=== PATIENT | male | born 1960 | race Caucasian/White ===

== ENCOUNTER 2024-11-07 04:30 | Emergency (ER) | payer BC, SELFPAY ==
[2024-11-07 04:32] VITALS: BP 154/89; PULSE 79; RESP 16; TEMP 35.8; O2SAT 97; BMI 27.8
--- OUTSIDE RECORDS SUMMARY | 2024-11-07 04:34 | XMS_ITS | Clinical Summary ---
Author Organization [facility] Address [place], [place] [address] Care Team Providers Care Audiologist Name Role Phone Abdoul Todd MD Primary Care Provider [phone]- [phone] Allergies Active Allergy Reactions Criticality Noted Date Comments Homeopathic Products 07/14/2007 Mesalamine Rash High 11/06/2024 Medications triamcinolone 0.025 % ointmentIndicati ons:Chronic eczema Apply topically to affected area(s) two times daily. Apply twice daily for up to 2 weeks then take a week off and repeat as needed. 80 g 3 4 Active clobetasol (TEMOVATE) 0.05 % ointmentIndicati ons:Chronic eczema Apply topically to affected area(s) two times daily. Use for up to 2 weeks and take a week off and repeat as needed. 60 g 1 5 Active mometasone-formo terol (DULERA) 100-5 mcg/actuation inhalerIndicatio ns:Mild intermittent asthma without complication 1-2 puffs every 8 hours as needed for asthma symptoms. Max 12 puffs per day. 1 Each 5 5 Active mesalamine (LIALDA) 1.2 gram delayed-release tabletIndication s:Ulcerative colitis without complications, unspecified location (HC) Take 4 Tablets (4.8 g) by mouth once daily with a meal. 360 Tablet 3 4 11/06/19 25 Discontin ued(*Cory rgic/Adve rse Rxn/Side Effects) mometasone-formo terol (DULERA) 100-5 mcg/actuation inhalerIndicatio ns:Mild intermittent asthma without complication 1-2 puffs every 4 hours as needed for asthma symptoms. Max 12 puffs per day. 1 Each 4 10/10/19 25 Discontin ued(Reord er (E-cancel not sent)) Active Problems Problem Noted Date Diagnosed Date Chronic eczema 10/10/2024 Ulcerative colitis without complications 015 Rhinitis medicamentosa 10/28/2011 Unspecified ulcerative colitis 08/07/2010 Overview (02/02/2024): Colonoscopy 07/2010 mild sigmoid colitis repeat in 3 years Colonoscopy 03/2014 proctitis repeat in 2 years Colonoscopy 05/2015 normal repeat in 2 years Colonoscopy 10/2020 ulcerative proctitis, quiescent colitis involving the left colon, repeat in 3 years Colonoscopy 01/2024 normal biopsies, repeat colonoscopy in 3 years Encounters Date Type Department Care Team Description 11/06/2024 Telephone [facility] [address] [place] [address] Fernando Reza MD Questions 11/06/2024 Nurse Triage [facility] [address] [place] [address] Abdoul Todd MD Derm Problem 10/16/2024 3:15 PM CASE MAKER Orders Only [facility] [address] [place] [address] Lab, [place] [facility] 10/16/2024 Travel 10/10/2024 3:10 PM CASE MAKER Office Visit [facility] [address] [place] [address] Abdoul Todd MD Physical (63 years); Immunization/Injecti on 10/09/2024 Travel 09/15/2024 Telephone [facility] [address] [place] [address] Jovana Taylor MD Results (Pulmonary Function test/) 09/12/2024 1:44 PM CASE MAKER - 09/12/2024 11:59 PM CASE MAKER Hospital Encounter [facility] [address] [place] [address] Jovana Taylor MD Chronic cough 09/12/2024 Travel 09/07/2024 11:15 AM CASE MAKER Office Visit [facility] [address] [facility] [place] [address] Jovana Taylor MD Cough (for about a year, SOB, no fever, Fatigue ) 09/07/2024 Travel 09/07/2024 Nurse Triage [facility] [address] [place] [address] Abdoul Todd MD Cough from Last 3 Months Immunizations Name Administration Dates Next Due AMB Influenza, IIV3 (Age >=3 years)(Flu Clinic Only) 07/23/2008 COVID-19 vaccine (AdInnovation 30mcg/0.3mL) PF, MDV 11/05/2020,10/15/2020 INFLUENZA, IIV3 PF (AGE >= 6 MO) 10/10/2024 Influenza A (H1N1), Inactiva jon (Age >=3 Years) 07/25/2009 Influenza, IIV3 (Age >=3 years) 06/28/2013,08/01,07/15/2005 Influenza, IIV4 09/08/2021 Influenza, IIV4 (=>6mos) MDV 07/04/2019 Tdap 10/10/2024,10/28/2011 Zoster (Shingrix-RZV, recombinant) 10/10/2024, Family History Medical History Relation Name Comments Ulcerative colitis Brother s/p colec jess Dementia Father early dementia w short term memory; lives at home Valvular heart disease Mother she h ad a procedure for this at 87 Anesthesia Problem Other none Ulcerative colitis Sister 1 Charlette Cancer-ovarian Sister 2 Marguerite Ulcerative colitis Sister 2 Marguerite Relation Name Status Comments Brother Alive Father Alive Mother Alive Other Sister 1 Charlette Alive Sister 2 Marguerite Social History Tobacco Use Types Packs/Day Years Used Date Smoking Tobacco: Never Smokeless Tobacco: Never Tobacco Cessation:Counseling Given: Yes Alcohol Use Standard Drinks/Week Comments Yes 0 (1 standard drink = 0.6 oz pur e alcohol) less than once a week PHQ-2 Answer Date Recorded PHQ-2 TOTAL SCORE 0 10/10/2024 Social Connections Answer Date Recorded Do you often feel lonely or isolated from those around you? 0 10/09/2024 Alcohol Use Answer Date Recorded How often do you have a drink containing alcohol ? 2 10/10/2024 How many drinks containing a lcohol do you have on a typical day when you are drinking? 0 10/10/2024 How often do you have five or more drinks on one occasion? 0 10/10/2024 Financial Resource Strain Answer Date R ecorded Difficulty of Paying Living Expenses 3 10/09/2024 Difficulty of Paying Living Expenses Not on file 10/09/2024 Food Insecurity Answer Date Recorded Do you worry your food will run out before you are able to buy more? 1 10/09/2024 Transportation Needs Answer Date Record ed Does lack of transportation keep you from medica l appointments? 1 10/09/2024 Does lack of transportation keep you from work, meetings or getting things that you need? 1 10/09/2024 Housing Stability Answer Date Recorded What is your housing situation today? 1 10/09/2024 Utilities Answer Date Recorded Do you have trouble paying f or utilities (for example, heat, electricity, water, phone)? 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 Not on file Not on file Obstetrics History Last Filed Vital Signs Vital Sign Reading Time Taken Comments Blood Pressure 118/83 10/10/2024 3:19 PM CASE MAKER Pulse 85 10/10/2024 3:19 PM CASE MAKER Temperature 36.5 C (97.7 F) 10/10/2024 3:19 PM CASE MAKER Respiratory Rate 16 01/27/2024 10:3 5 AM CDT Oxygen Saturation 100% 10/10/2024 3:19 PM CASE MAKER Inhaled Oxygen Concentration - - Weight 95.1 kg (209 lb 11.2 oz) 10/10/2024 3:18 PM CASE MAKER Height 180 cm (5' 10.87) 10/10/2024 3:18 PM CASE MAKER Body Mass Index 29.36 10/10/2024 3:18 PM CASE MAKER Plan of Treatment Upcoming Encounters Date Type Department Care Team (Late st Contact Info) Description 11/16/2024 11:30 AM CASE MAKER Office Visit [facility] [address] [place] [address] Fernando Reza MD [address] [place] [address] Health Maintenance Due Date Last Done Comments Pneumococcal series for age 50+ (1 of 1 - PCV) 2012 COVID-19 vaccine series (2023- season) 2024 09/04/2021, 11/05/2020, 10/15/2020 BMI (ht and wt on same day) for age 18+ 10/10/2025 10/10/2024, 09/08/2021, 04/29/2017, Additional history exists Depression screening for age 12+ 10/10/2025 10/10/2024, 09/08/2021, 04/05/2017 Colonoscopy through age 75 01/26/202701/26, 01/27/2024, 01/27/2024, Additional history exists Lipids for age 45-75 10/16/2029 10/16/2024, 09/08/20 Tetanus booster 10/10/2034 10/10/2024, 10/28/2011 RSV vaccine for adults or (1 - 1-dose 75+ series) 2037 Hepatitis C screening for ag e 18-79 Completed 09/08/2021 Influenza for age 50-64 Completed 10/10/19, 09/08/2021, 07/04/2019, Additional history exists Tdap Completed 10/10/2024, 10/28/2011 Zoster (shingles) series for age 50+ Completed 10/10/2024, 09/08/2021 HIV for age 15-65 Completed 10/16/2024 Procedures Procedure Name Priority Date/Time Associated Diagnosis Comments ANTI HIV 1/2 Routine 10/16/2024 3:20 PM CASE MAKER Screening for HIV (human immunodeficiency virus) PSA TOTAL Routine 10/16/2024 3:20 PM CASE MAKER Prostate cancer screening LIPID PANEL W REFLEX MEASURED LDL Routine 10/16/2024 3:20 PM CASE MAKER Lipid screening COMPLETE PULMONARY FUNCTION TEST WITH BRONCHODILATOR Routine 09/12/2024 2:00 PM CASE MAKER Chronic cough COLONOSCOPY SCREENING Routine 01/27/2024 8:50 AM CDT Screening for colon cancer ANTI HCV Routine 09/08/2021 9:35 AM CASE MAKER Encounter for hepatitis C screening test for low risk patient from Last 3 Months or Most Recently Relevant to Health Maintenance Results * (ABNORMAL) LIPID PANEL W REFLEX MEASURED LDL (10/16/2024 3:20 PM CASE MAKER) CHOLESTEROL, TOTAL 197 <200 mg/dL [facility] HDL CHOLESTEROL 50 > OR = 40 mg/dL [facility] TRIGLYCERIDES 227(H) <150 mg/dL [facility] Comment: If a non-fasting specimen was collected, consider repeat triglyceride testing on a fasting specimen if clinically indicated. Henri et al. J. of Clin. Lipidol. 2015;9:129-169. LDL-CHOLESTEROL 113(H) mg/dL (calc) [facility] Comment: Reference range: <100 Desirable range <100 mg/dL for primary prevention; <70 mg/dL for patients with CHD or diabetic patients with > or = 2 CHD risk factors. LDL-C is now calculated using the Fernando-Juan Jose calculation, which is a validated novel method providing better accuracy than the Friedewald equation in the estimation of LDL-C. Fernando METZ et al. STEVIE. 2013;310(19): 5501-5989 (http://education.[employer]ilix/faq/XWO390) CHOL/HDLC RATIO 3.9 <5.0 (calc) [facility] NON HDL CHOLESTEROL 147(H) <130 mg/dL (calc) [facility] Comment: For patients with diabetes plus 1 major ASCVD risk factor, treating to a non-HDL-C goal of <100 mg/dL (LDL-C of <70 mg/dL) is considered a therapeutic option. Blood BLOOD SPECIMEN / Unknown 10/16/2024 3:20 PM CASE MAKER 10/16/2024 3:20 PM CASE MAKER Abdoul Todd MD CHEMISTRY Final Resu lt Performing Organization Address [facility] Co de Phone Number [employer] [facility] [address] [place] [address], [place] [phone] [facility] [address] [place] [address] * ANTI HIV 1/2 [66463.0] (10/16/2024 3:20 PM CASE MAKER) HIV AG/AB, 4TH GEN NON-REACT MARIANA NON-REACT MARIANA [facility] [place] Comment: HIV-1 antigen and HIV-1/HIV-2 antibodies were not detected. There is no laboratory evidence of HIV infection. PLEASE NOTE: This information has been disclosed to you from records whose confidentiality may be protected by state law. If your state requires such protection, then the state law prohibits you from making any further disclosure of the information without the specific written consent of the person to whom it pertains, or as otherwise permitted by law. A general authorization for the release of medical or other information is NOT sufficient for this purpose. For additional information please refer to http://education.iHELP World/faq/NVD165 (This link is being provided for informational/ educational purposes only.) The performance of this assay has not been clinically validated in patients less than 2 years old. Blood BLOOD SPECIMEN / Unknown 10/16/2024 3:20 PM CASE MAKER 10/16/2024 3:20 PM CASE MAKER Abdoul Todd MD SEND OUTS Final Resu lt Performing Organization Address [facility]/ZIP Co de Phone Number [employer] [facility] [address] [place] [address], [place] [phone] [facility] [address] [place] [address] * PSA TOTAL (DIAG OR SCREEN) (10/16/2024 3:20 PM CASE MAKER) PSA, TOTAL 1.17 < OR = 4.00 ng/mL [facility] Comment: The total PSA value from this assay system is standardized against the WHO standard. The test result will be approximately 20% lower when compared to the equimolar-standardized total PSA (Derek Manju). Comparison of serial PSA results should be interpreted with this fact in mind. This test was performed using the Siemens chemiluminescent method. Values obtained from different assay methods cannot be used interchangeably. PSA levels, regardless of value, should not be interpreted as absolute evidence of the presence or absence of disease. Blood BLOOD SPECIMEN / Unknown 10/16/2024 3:20 PM CASE MAKER 10/16/2024 3:20 PM CASE MAKER us Abdoul Todd MD CHEMISTRY Final Resu lt [employer] [facility] [address] [place] [address], [facility] [address] [place] [address] * COMPLETE PULMONARY FUNCTION TEST WITH BRONCHODILATOR (09/12/2024 2:00 PM CASE MAKER) Narrative [facility] NOW - 09/12/2024 2:00 PM CASE MAKER Walt Robert MD 09/18/2024 4:11 PM Complete Pulmonary Function Tests. Ordering Provider: Jovana Taylor MD Reason for Study: (R05.3) Chronic cough Date of study: 09/12/2024 Study adequacy: The study is technically adequate. DESCRIPTION: Spirometry is normal. Reversibility was not assessed. The flow volume loop is normal Lung volumes are normal Diffusing capacity assessment was not technically adequate IMPRESSION: Spirometry is normal. Lung volumes are normal. If there is concern for asthma, consider a methacholine challenge test. Pulmonary Function Tests describe physiology and are not independently diagnostic. Clinical correlation is recommended. Objective Severity Z-Score Normal > -1.645 Mild - 1.645 to -2.5 Moderate -2.5 to -4 Severe < -4 Interpretative Algorithm: Spirometry Interpretation Algorithm Lung Volume Interpretation Algorithm Diffusion Interpretation Algorithm Walt Robert MD Pulmonary and Sleep Medicine [facility] [phone] 09/18/2024 4:11 PM us Jovana Taylor MD PFT ORD Final Resul t [facility] [place], [place] * COLONOSCOPY (01/27/2024 9:44 AM CDT) 01/27/2024 9:44 AM CDT Narrative Transcriptions Fernando Reza MD - 01/27/2024 10:21 AM CDT Patient Name: Tad Kirkland Procedure Date: 01/27/2024 Gender: Male Date of : 1960 Admit Type: Outpatient Procedure: Colonoscopy Proceduralist: Fernando Reza MD , Bina March RN (Nurse) Referring MD: Abdoul Todd Indications/Pre-Op Diagnosis: High risk colon cancer surveillance:Ulcerative left sided colitis of 8 (or more) years duration, Last colonoscopy: October 2020 Medications: Fentanyl 200 micrograms IV, Midazolam 4 mgIV, The level of sedation administered wasmoderate Procedure Description: The patient had risks, benefits and alternatives explained to andgave informed consent. The patient had a stable cardiopulmonary status and judged an adequate candidate for conscious sedation. The endoscope -[id number] was passed through the anus andadvanced to the cecum, identified by appendiceal orifice and ileocecal valve.The colonoscopy was performed without difficulty. The patient toleratedthe procedure well. The quality of the bowel preparation was good. The ileocecal valve, appendiceal orifice, and rectum were photographed. Complications: No immediate complications. Estimated Blood Loss & Specimen: Estimated blood loss: none. Specimen collected - Yes and sent to Laboratory Findings: The perianal and digital rectal examinations were normal. Inflammation was not found based on the endoscopic appearance of the mucosa in the colon. This was graded as Dickinson Score 0 (normal orinactive disease), and when compared to the previous examination, the findings are in remission. These biopsies were obtained randomly (in a non-targeted manner) for ulcerative colitis surveillance. Background biopsies were taken for histology with a cold forceps from the ascending colon, transverse colon, descending colon andrectosigmoid colon. These biopsy specimens from the ascending colon, transverse colon, descending colon and rectosigmoid colon were sent toPathology. The exam was otherwise without abnormality. Impressions/Post-Op Diagnosis: - Inactive (Dickinson Score 0) left-sided ulcerative colitis, in remission since the last examination. - The examination was otherwise normal. - Background biopsies were taken from the ascending colon, transverse colon, descending colon and rectosigmoid colon. Recommendation: - Patient has a contact number available for emergencies. The signsand symptoms of potential delayed complications were discussed with the patient. Return to normal activities tomorrow. Written discharge instructions were provided to the patient. - Resume previous diet. - Continue present medications. - Await pathology results. - Repeat colonoscopy is recommended for surveillance. The colonoscopy date will be determined after pathology results from today's exambecome available for review. Moderate Sedation: A time out was performed before the procedure. Moderate (conscious) sedation was administered by the endoscopy nurse and supervised bythe endoscopist. The following parameters were monitored: oxygensaturation, heart rate, blood pressure, EKG, CO2, respiratory rate, adequacy of pulmonary ventilation and reponse to care. Please refer to the patient's medical record flowsheets and nursing notes for moderate sedation details. Total physician intraservice time was 24 minutes. Fernando Reza MD 01/27/2024 10:20:54 AM This report has been signed electronically. Note Initiated On: 01/27/2024 9:44 AM Procedure Code(s): --- Professional --- 83228, Colonoscopy, flexible; with biopsy, single or multiple Diagnosis Code(s): --- Professional --- K51.50, Left sided colitis withoutcomplications CPT copyright 2022 [employer]. All rights reserved. The codes documented in this report are preliminary and upon byproduct engineer reviewmay be revised to meet current compliance requirements. Scope In: 9:50:23 AM Scope Withdrawal Time 0 hours 12 minutes 41 seconds Scope Out: 10:11:16 AM us Fernando Reza MD PROCEDURE ORD Final Res ult * ANTI HCV (09/08/2021 9:35 AM CASE MAKER) HEPATITIS C ANTIBODY Non-React mariana Non-React mariana 09/08/2021 7:00 PM CASE MAKER [facility] Comment:Antibodies to HCV no t detected; does not exclude the possibility of exposure to HCV. Blood BLOOD SPECIMEN / Unknown Venipuncture / Unknown 09/08/2021 9:35 AM CASE MAKER 09/08/2021 9:36 AM CASE MAKER us Abdoul Todd MD SEND OUTS Final Resu lt [facility] [address] [place] [address], from Last 3 Months or Most Recently Relevant to Health Maintenance Insurance [id number] [place] [id number] [facility] Care Teams Audiologist Relationship Specialty Start Date End Date Abdoul Todd MD [address] [place] [address] PCP - General 07/21/06
[2024-11-07] MEDS: hydrOXYzine pamoate 25 MG CAPSULE 50 MG PO (05:08)
[2024-11-07] MEDS: predniSONE 20 MG TABLET 40 MG PO (05:08)
--- NOTE | 2024-11-07 05:35 | ED_ITS ---
HPI - General Adult General Chief complaint: Skin/Abscess/Foreign Body Stated complaint: allergic reaction Time Seen by Provider: 11/07/24 04:45 Source: patient Mode of arrival: ambulatory Limitations: no limitations History of Present Illness HPI narrative: 63-year-old male presents the emergency department for evaluation of itchy rash that has been going on for several weeks, intermittently but worsening over the past 2 days. Has been using oral Benadryl 1-2 tablets up to every 6 hours with limited relief. Has not been evaluated by primary care physician recently. Does have topical steroids on hand that he uses for eczema. Has tried these in a few areas without significant relief. Rash feels more intense on his hands. He suspects that his reaction may be coming from his mesalamine, so he stopped t aking this last night. He did speak with his GI doctor and was advised to try stopping the medication to see if the rash improved. Does not take any other prescription medications. Did recently have a viral gastroenteritis illness that has relieved without complication or need for treatment. No recent true fevers, no trauma or injury. No pertinent travel. No new sun exposure. No urinary changes or abdominal pain, no difficulty breathing, swelling of the lips tongue or throat. No prior history of anaphylaxis. Past medical history is notable for ulcerative colitis, takes mesalamine only, no other immunosuppressants. He also was recently given an albuterol inhaler due to intermittent cough for the past year, states that this has been helping. Nonsmoker. No drug allergies. ROS is notable for the skin symptoms only, otherwise denies acute changes times 12 systems. Related Data Home Medications ?Medication ?Instructions ?Recorded ?Confirmed mesalamine 1.2 gram tablet,delayed 4.8 g PO DAILY 04/08/23 11/07/24 release clobetasol 0.05 % topical ointment topical 11/07/24 triamcinolone acetonide 0.025 % topical 11/07/24 topical ointment Previous Rx's ?Medication ?Instructions ?Recorded albuterol sulfate 90 mcg/actuation 2 puff inhalation Q4-6H PRN 02/18/24 aerosol inhaler shortness of breath or wheezing #6.7 grams hydroxyzine pamoate 25 mg capsule 25 mg PO Q8H PRN itching #30 caps 11/07/24 (Vistaril) prednisone 10 mg tablet 10 mg PO DIRECTED #28 tabs 11/07/24 Allergies Allergy/AdvReac Type Severity Reaction Status Date / Time No Known Drug Allergies [facility]ergy Verified 02/18/24 12:24 [facility] Social History Smoking Status: Never smoker Do you use any of these nicotine containing products: None Second hand tobacco smoke exposure: No How often do you have a drink containing alcohol: never AUDIT-C Alcohol total score: 0 Non-prescribed substance use: denies use Exam Const: Vital Signs, click to edit/add: Vital Signs - 24 hr 11/07/24 04:32 Temperature 96.5 F L Pulse Rate [Pulse Oximeter] 79 Respiratory Rate 16 Blood Pressure [Ri ght Upper Arm] 154/89 H Pulse Oximetry 97 Oxygen Delivery Me thod Room Air Documenting provider has reviewed patient's vital signs: yes Common normals: no apparent distress General appearance: comfortable HENMT: Common normals: normocephalic, moist oral mucous membranes, oropharynx normal and dentition normal Head and scalp: normocephalic Other: Tongue and lips normal with no swelling Eye: Common normals: conjunctivae normal General eye: normal appearance of both eyes Conjunctiva: conjunctiva(e) normal Neck & C-Spine: Common normals: full ROM and no lymphadenopathy General: normal visual inspection Chest: Common normals: inspection of chest normal Resp: Common normals: normal respiratory effort, no use of accessory muscles and clear to auscultation bilaterally Effort & inspection: able to speak in complete sentences Auscultation: clear to auscultation bilaterally Cardio: Common normals: regular rate, regular rhythm, S1 normal heart sound, S2 normal heart sound and no murmurs Rate: regular rate Rhythm: regular rhythm Heart sounds: S1 normal and S2 normal Extremity: Common normals: normal to inspection, full ROM and no pedal edema Psych: Attitude: engaged Activity/motor behavior: appropriate eye contact Insight: insight good Judgement: judgment good Skin: Narrative: Maculopapular appearing rash, confluent on the extensor surfaces, not fully blanching. Moderately well-defined borders with no central clearing. Rash is most prominent on the arms, chest. Less so on the abdomen, legs. No open sores or ulcerations. Fairly symmetric on right and left body Course Course ED Course: 63-year-old male with rash, appears immune mediated without signs of anaphylaxis. Differential diagnosis including idiopathic, drug eruption, hives, amongst others. Counseled patient that it can be quite difficult to find the etiology. Mesalamine is unfortunately a common trigger for people and I do recommend that we keep the original plan which is to stop that medication. It may take few weeks for the rash to clear. I have recommended a course of oral steroids. He will receive 40 mg prednisone here in the ED and then will continue on 20 mg twice daily for 5 days, then 10 mg twice daily for 3 days then 10 mg once daily for a couple more days. I would like him to call and make a follow-up appointment with a primary care doctor in 2 weeks time to re-evaluate the rash and see if things rebound after stopping steroids. If things do. After the course of steroids and discontinuation the mesalamine, it can be assumed that the mesalamine was likely the culprit. If the rash returns without restarting the mesalamine, idiopathic, immune mediated or related to his autoimmune disease should be considered. Allergy referral within the recommended. Alarm symptoms reviewed with patient that warrant ED presentation. He verbalizes understanding and agreement. Will be given 50 mg of p.o. Vistaril here in the ED and then a prescription for Vistaril Q 8 p.r.n.. Vital Signs Vital signs: Initial Vital Signs Temperature 96.5 F L 11/07/24 04:32 Temperature Source Temporal Artery Scan 11/07/24 04:32 Pulse Rate 79 11/07/24 04:32 Respiratory Rate 16 11/07/24 04:32 Blood Pressure 154/89 H 11/07/24 04:32 Blood Pressure Mean 110 H 11/07/24 04:32 Blood Pressure Position Sitting 11/07/24 04:32 Pulse Oximetry 97 11/07/24 04:32 Oxygen Delivery Method Room Air 11/07/24 04:32 Vital Signs Temperature 96.5 F L 11/07/24 04:32 Pulse Rate 79 11/07/24 04:32 Respiratory Rate 16 11/07/24 04:32 Blood Pressure 154/89 H 11/07/24 04:32 Pulse Oximetry 97 11/07/24 04:32 Oxygen Delivery Method Room Air 11/07/24 04:32 Temperature 96.5 F L 11/07/24 04:32 Pulse Rate 79 11/07/24 04:32 Respiratory Rate 16 11/07/24 04:32 Blood Pressure 154/89 H 11/07/24 04:32 Pulse Oximetry 97 11/07/24 04:32 Oxygen Delivery Method Room Air 11/07/24 04:32 Medications Administered Medications: Discontinued Medications Generic Name Dose Route Start Last Admin Trade Name Cristina PRN Reason Stop Dose Admin Hydroxyzine Pamoate 50 mg 11/07/24 05:02 11/07/24 05:08 Hydroxyzine Pamoate 25 Mg Capsule PO 11/07/24 05:03 50 mg ONCE ONE Administration Prednisone 40 mg 11/07/24 05:02 11/07/24 05:08 Prednisone 20 Mg Tablet PO 11/07/24 05:03 40 mg ONCE ONE Administration Discharge Plan Discharge Clinical Impression: Drug eruption Patient Disposition: Home w/ Parent or Adult Condition: Stable Instructions: Acute Rash (ED) Additional Instructions: As we discussed, there are no signs of an anaphylactic type allergic reaction. This is more likely a reaction to your mesalamine or is triggered by a viral illness or simply your autoimmune disease. These conditions can be quite frustrating. At this time, would like to start you on a prednisone taper. Your given 40 mg of prednisone here in the emergency department. You will take 20 mg this afternoon and continue on these twice daily for a total of 5 days, then decrease to 1 tablet twice daily for 3 days and then 1 tablet daily until gone. Today will count as the 1st day even though you are receiving your 1st dose in the emergency department. These reactions can take several weeks to subside which can be frustrating. It is very difficult to tell for sure what is the cause of the reaction as it does not show up in blood work typically. If the reaction does not return once you are off of the prednisone for a week and have stayed off of the mesalamine, we can assume that the mesalamine was the cause. If the rash rebound after your prednisone, please see your primary care doctor for an allergy referral I am further blood workup. There may be additional factors in your immune system that could be triggering it also. We typically reserved this workup only if typical initial conservative management fails. He should come to emergency department if you have swelling of her airway, tongue lips, significant difficulty breathing or are unable to swallow. Activity Level: No Restrictions Discharge Diet: Regular Prescriptions: New prednisone 10 mg tablet 10 mg PO DIRECTED Qty: 28 0RF Rx Instructions: 2 tabs by mouth 2x per day for 5 days, then 1 tab 2x per day for 3 days, then 1 tab daily until gone hydroxyzine pamoate [Vistaril] 25 mg capsule 25 mg PO Q8H PRN (Reason: itching) Qty: 30 1RF No Action mesalamine 1.2 gram tablet,delayed release (DR/EC) 4.8 g PO DAILY albuterol sulfate 90 mcg/actuation HFA aerosol inhaler 2 puff inhalation Q4-6H PRN (Reason: shortness of breath or wheezing) Qty: 6.7 0RF triamcinolone acetonide 0.025 % ointment topical clobetasol 0.05 % ointment topical Follow Up/Referrals: Abdoul Todd MD [Primary Care Provider] - Stand Alone Forms: [facility] Info Instructions
== END 2024-11-07 05:25 | disposition home or self-care (01) ==
LOC: ED 05:17
PROVIDERS: Emergency Provider Family Medicine; PCP Family Medicine
DX: L50.0 Allergic urticaria (principal)
CPT/HCPCS: 99283; A9270; J7512